=== PATIENT | male | born 1975 | race American Indian/Alaskan Native ===

== ENCOUNTER 2023-04-14 10:23 | Day surgery (SDC) | payer OTHER ==
[~2023-04-14] VITALS: Ht 185.4 cm; Wt 117.9 kg
[~2023-04-14 10:23] MED LIST: AMIO200 PO; Aspir 8181 MG PO; CARV25 PO; CYCL10 PO; ENTRESTO 49 MG1 EACH PO; FARXIGA10 MG PO; HYDR1TAB94 PO; Prinivil10 MG PO; ROSU10TA PO; SPIR25 PO
--- NOTE | 2023-04-14 12:25 | NUR ---
04/14/23 1225 Lety Jimenez A PILLOW UNDER HEAD, ARMS SECURED ON PADDED ARM BOARDS, RIGHT KNEE POST, RIGHT GEL HIP BUMP.
--- NOTE | 2023-04-14 13:08 | NUR ---
04/14/23 1308 Rohit Hickman PT EXPERIENCING NUMEROUS PVCS IN PACU WITH RUNS OF BIGEMONY. DR. SERRANO CONSULTED AND APPROVED D/C WITH CURRENT RHYTHM AND NORMAL B/P.
[2023-04-14 14:42] VITALS: BP 111/69
--- NOTE | 2023-04-14 15:07 | NUR ---
04/14/23 1507 Rohit Hickman IV REMOVED INTACT. SITE WNL. PT REPORTED 4/10 PAIN IN R KNEE AT TIME OF D/C. FLACC 0/10. HE DESCRIBED PAIN TOLERABLE AND EXPRESSED READINESS TO RETURN HOME. PT TALKATIVE AND APPEARED RELAXED. HE DENIED NAUSEA. PT ALSO DENIED CARDIAC SYMPTOMS THROUGHOUT STAY IN SDU --INCLUDING CHEST PAIN, DIZZINESS, AND SOB--AND NONE WERE OBSERVED DR. SERRANO WAS CONSULTED AND APPROVED D/C IN CURRENT STATE. 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 PT WAS ADVISED TO MONITOR BLOOD PRESSURE AT HOME AND FOLLOW UP NECESSARY. HE WAS ALSO EDUCATED ABOUT PVCS AND WHEN TO SEEK CARE.
== END 2023-04-14 14:58 | disposition home or self-care (01) ==
LOC: ORSCSDS 10:23
PROVIDERS: Orthopaedic Surgery
PROC: 0SBC4ZZ Excision of Right Knee Joint, Percutaneous Endoscopic Approach (ICD-10-PCS; principal; 2023-04-14 11:45)
DX: M25.561 Pain in right knee (principal); M94.261 Chondromalacia, right knee; I10 Essential (primary) hypertension; Z95.0 Presence of cardiac pacemaker; Z79.899 Other long term (current) drug therapy; Z68.34 Body mass index [BMI] 34.0-34.9, adult
CPT/HCPCS: 82947; J0171; J0690; J1100; J1885; J2250; J2371; J2405; J2704; J2795; J3010; J7120